=== PATIENT | female | born 1975 | race African-American/Black ===

== ENCOUNTER → 2018-08-11 | Outpatient (CLI) | payer BC ==
--- NOTE | 2018-08-11 16:30 | RAD ---
MR#: [id number] Date of Study: 08/11/2018 Ordering Physician: CRISTIN DICKEY, Referring Physician: CRISTIN DCIKEY, Tech: Michael James MBA, RDMS, RVT, RDCS, RTR APPROVED REPORT Patient Location: OUT-PATIENT Indications Claudication:Bilaterally VELOCITY AND DOPPLER WAVEFORM ANALYSIS RIGHT cm/secWaveformSeverity LEFT cm/secWaveform Severity dCFA 137.0TriphasicdCFA 145.0Triphasic Prof Fem Art. 98.0TriphasicProf Fem Art. 83.0Triphasic Fem Art Prox. 132.0TriphasicFem Art Prox. 143.0Triphasic Fem Art Mid. 128.0TriphasicFem Art Mid. 135.0Triphasic Fem Art Dist. 111.0TriphasicFem Art Dist. 119.0Triphasic Pop Art(Fossa) 93.0TriphasicPop Art(AK) 74.0Triphasic BIOLOGICAL SCIENCE AIDE Prox. 87.0TriphasicPTA Prox. 78.0Triphasic BIOLOGICAL SCIENCE AIDE Dist. 76.0TriphasicPTA Dist. 74.0Triphasic Per Art Mid. 50.0TriphasicPer Art Mid. 63.0Triphasic ERIC Prox. 83.0TriphasicATA Prox. 98.0Monophasic DPA 70TriphasicDPA 86Monophasic Findings Grayscale images of the bilateral lower extremity arterial vessels reveal minimal atherosclerosis. Spectral waveforms in the right lower extremity are triphasic from the common femoral artery to the b elow-knee vessels. No focal obstruction is noted. Spectral waveforms in the left lower extremity are mostly triphasic from the common femoral artery to the popliteal segment. Below the knee the anterior tibial artery demonstrates monophasic waveform bu t with adequate velocities. Critical Notification Critical Value: No <Conclusion> 1. No focal high-grade stenosis identified in the bilateral lower extremity arterial vessels. Signed by : Jerald Lorenzo, Electronically Approved : 08/11/2018 16:29:38
--- NOTE | 2018-08-11 16:46 | RAD ---
MR#: [id number] Date of Study: 08/11/2018 Ordering Physician: CRISTIN DICKEY, Referring Physician: CRISTIN DICKEY, Tech: Michael James MBA, RDMS, RVT, RDCS, RTR APPROVED REPORT Bilateral Lower Extremity Venous Study for DVT Patient Location: OUT-PATIENT Indications Lower Extremity Pain: Bilateral Vein Imaging (Right) CFV (R): Compressible SFJ (R): Compressible FEM (R): Compressible POP (R): Compressible DFV (R): Compressible PTV (R): Spontaneous GSV (R): Spontaneous Peroneals (R): Spontaneous Vein Imaging (Left) CFV (L): Compressible SFJ (L): Compressible FEM (L): Compressible POP (L): Compressible DFV (L): Compressible PTV (L): Spontaneous GSV (L): Spontaneous Peroneals (L): Spontaneous Doppler Evaluation (Right) CFV (R): Spontaneous POP (R):Spontaneous Doppler Evaluation (Left) CFV (L):Spontaneous POP (L):Spontaneous Findings Grayscale images of the bilateral lower extremity veins do not reveal any obvious evidence of thrombu s. The veins from the common femoral to popliteal segment bilaterally appear to be compressible. The below-knee veins demonstrate spontaneous flow without any obvious evidence of thrombus. Critical Notification Critical Value: No <Conclusion> Negative for DVT in the bilateral lower extremities. Signed by : Jerald Lorenzo, Electronically Approved : 08/11/2018 16:45:41
== END | disposition home or self-care (01) ==
LOC: US 14:55
PROVIDERS: ATTEND Internal Medicine Cardiovascular Disease
DX: I70.293 Other atherosclerosis of native arteries of extremities, bilateral legs (principal)
CPT/HCPCS: 93925; 93970